=== PATIENT | male | born 1960 | race Caucasian/White ===

== ENCOUNTER 2021-08-18 08:27 | Outpatient (REF) | payer OTHER, SELFPAY ==
[2021-08-18 12:22] LABS: Anion Gap 9 (12-20); Blood Urea Nitrogen 11 mg/dL (9-16); Carbon Dioxide 28 mmol/L (22-29); Chloride 104 mmol/L (96-108); Estimated Glomerular Filt Rate > 60; Glucose Random 100 mg/dL (60-115); Potassium 4.4 mmol/L (3.3-5.1); Sodium 137 mmol/L (135-145)
== END 2021-08-18 08:28 | disposition home or self-care (01) ==
LOC: HO.HMGCLDS 08:27
PROVIDERS: Visit Provider Nurse Practitioner Acute Care
DX: I10 Essential (primary) hypertension (principal)
CPT/HCPCS: 36415; 80048